=== PATIENT | male | born 2000 | race African-American/Black ===

== ENCOUNTER 2022-01-15 11:54 | Emergency (ER) | payer OTHER ==
[~2022-01-15] VITALS: Ht 175.3 cm; Wt 101.7 kg
[2022-01-15 16:05] VITALS: BP 143/67
== END 2022-01-15 16:08 | disposition home or self-care (01) ==
LOC: M ED 11:54
DX: S62.501A Fracture of unspecified phalanx of right thumb, initial encounter for closed fracture (principal); W19.XXXA Unspecified fall, initial encounter; Y93.64 Activity, baseball